=== PATIENT | male | born 1960 | race Caucasian/White ===

== ENCOUNTER 2017-07-31 07:10 | Outpatient (CLI) | payer BC ==
--- NOTE | 2017-07-31 09:38 | Ultrasound Report ---
ULTRASOUND ABDOMEN LIMITED INDICATION: Elevated liver enzymes. COMPARISON: None similar at this institution. FINDINGS: Right upper quadrant sonography demonstrates diffusely echogenic liver with grossly preserved contours. No definite focal suspicious lesion or biliary dilatation. No gallstones or pericholecystic fluid. Slight gallbladder sludge. Gallbladder wall thickness is 2.7 mm. Common bile duct is 3.4 mm. Imaged pancreas, nonaneurysmal abdominal aorta and IVC appear within normal limits. Nonhydronephrotic, 12.2 x 5.2 x 5.3 cm right kidney with cortical thickness of 1.6 cm. CONCLUSION: Fatty liver and possible slight gallbladder sludge without acute sonographic abnormality, as described. Thank you for the opportunity to participate in this patient's care.
== END 2017-07-31 07:11 | disposition home or self-care (01) ==
LOC: US 07:10
PROVIDERS: ATTEND Internal Medicine
DX: K76.0 Fatty (change of) liver, not elsewhere classified (principal); R74.8 Abnormal levels of other serum enzymes
CPT/HCPCS: 76705

== ENCOUNTER 2021-02-12 09:01 | Emergency (ER) | payer SELFPAY ==
[2021-02-12 10:42] VITALS: BP 164/86
--- NOTE | 2021-02-12 10:44 | Event Note ---
ED Screening Note Date of service: 02/12/21 Time: 10:41 ED Screening Note: 60-year-old male patient with history of hypertension presents emergency department complaints of progressively worsening nontraumatic headache. Patient states he first began experiencing headaches approximately 1 year ago. The headache began to worsen over the course of the last 3 weeks. He endorses associated blurred vision and paresthesias in both upper and lower extremities. He has been taking Tylenol for pain. He is not anticoagulated. No seizure or syncope. General: Awake, appropriately interactive, no acute distress. Neck: Supple. Full range of motion intact. Cardiovascular: Normal peripheral perfusion. Pulmonary: No respiratory distress. Patient is speaking normally without use of accessory muscles. Skin: No apparent rashes or lesions. Neurological: No facial asymmetry. Speech is clear. Follows commands. Patient is alert and oriented. Strength and sensation intact throughout. Occipital headache improved with flexion of the neck. Musculoskeletal: Moves all four extremities spontaneously with normal range of motion. Psych: Cooperative. Appropriate mood and affect. CT head indication: worsening headache + visual disturbance + paresthesias + hx of HTN + age >40; cannot be clinically ruled out using [place] SAH rule I have greeted and performed a focused rapid initial assessment of this patient. A comprehensive ED assessment and evaluation of the patient, analysis of all test results, and completion of the medical decision-making process will be conducted by additional ED providers. This initial assessment/diagnostic orders/clinical plan/treatment(s) is/are subject to change based on patients health status, clinical progression and re-assessment. Further treatment and workup at subsequent clinical provider's discretion. Patient/guardian urged not to elope from the ED as their condition may be serious if not clinically assessed and managed.
--- NOTE | 2021-02-12 10:47 | Emergency Department Report ---
ED General Adult HPI - General Chief complaint: Headache Stated complaint: HEAD PAIN Time Seen by Provider: 02/12/21 10:45 Source: patient Mode of arrival: Ambulatory Limitations: No Limitations - History of Present Illness Initial comments: 60-year-old male patient with history of hypertension presents emergency department complaints of progressively worsening nontraumatic headache. Patient states he first began experiencing headaches approximately 1 year ago. The headache began to worsen over the course of the last 3 weeks. He endorses associated blurred vision and paresthesias in both upper and lower extremities. He has been taking Tylenol for pain. He is not anticoagulated. Denies neck stiffness, seizure, syncope, fever, nausea, vomiting. Denies other complaints at this time - Related Data Previous Rx's Medication Instructions Recorded Last Taken Type Naproxen 500 mg PO BID #20 tablet 02/12/21 Unknown Rx Allergies Allergy/AdvReac Type Severity Reaction Status Date / Time No Known Allergies Allergy Unverified 07/31/17 07:10 ED Review of Systems ROS: Stated complaint: HEAD PAIN Other details as noted in HPI Other: GENERAL: Negative for fever, chills, weight change, anorexia, fatigue. EYES: Positive for blurred vision. ENT: Negative for ear pain, difficulty hearing, sore throat, nasal congestion, epistaxis. CARDIOVASCULAR: Negative for chest pain, palpitations, lower extremity swelling. PULMONARY: Negative for cough, dyspnea, wheezing, orthopnea, cyanosis. GASTROINTESTINAL: Negative for abdominal pain, nausea, vomiting, diarrhea, constipation. MUSCULOSKELETAL: Negative for joint pain, joint swelling, myalgias, back pain, neck pain. NEUROLOGICAL: Positive for headache and paresthesias. INTEGUMENTARY: Negative for erythema, rash, diaphoresis, laceration, ecchymosis. HEMATOLOGICAL: Negative for hemoptysis, hematemesis, hematochezia, hematuria. PSYCHIATRIC: Negative for hallucinations, suicidal ideation, homicidal ideation, anxiety, depression. ED Past Medical Hx - Past Medical History Hx Hypertension: Yes - Surgical History Past Surgical History?: No - Social History Smoking Status: Current Some Day Smoker Substance Use Type: Alcohol - Medications Home Medications: Home Medications Medication Instructions Recorded Confirmed Last Taken Type Naproxen 500 mg PO BID #20 tablet 02/12/21 Unknown Rx ED Physical Exam - General Limitations: No Limitations - Other Other exam information: General: Awake and alert. No acute distress. Head: Atraumatic, normocephalic. Eyes: EOMI. Pupils are equal and round, reactive to light, no nystagmus. Normal sclera and conjunctiva. ENT: Oral mucosa is moist. Normal pharyngeal exam. Neck: Supple. No lymphadenopathy. Pulmonary: No respiratory distress. Clear to auscultation bilaterally. Cardiac: Regular rate and rhythm. Pulses are palpable and equal bilaterally. No lower extremity cyanosis or edema. Skin: Warm and dry. No rashes. Abdomen: Soft, non-tender, non-protuberant. No guarding, rigidity, or rebound. Bowel sounds are normal. No organomegaly or masses noted. Back: Normal alignment. No CVA tenderness. Extremities: Symmetrical. Full range of motion intact. Neurological: Alert and oriented, appropriately interactive, no focal deficits. No facial asymmetry. Speech is clear. Follows commands. Patient is alert and oriented. Strength and sensation intact throughout. Occipital headache improved with flexion of the neck. Psych: Cooperative. Appropriate mood and affect. Speech is evenly metered. Thoughts are logically construed. ED Course Vital Signs 02/12/21 09:06 Temperature 98.4 F Pulse Rate 64 Respiratory 16 Rate Blood Pressure 164/86 O2 Sat by Pulse 94 Oximetry ED Medical Decision Making - Radiology Data [facility] [address] [place] [address] Cat Scan Report Signed Patient: INNA FOUNTAIN MR#: [id number] : 1960 Acct:[id number] Age/Sex: 60 / M ADM Date: 02/12/21 Loc: ED Attending Dr: Ordering Physician: ABHIJIT MCGRATH Date of Service: 02/12/21 Procedure(s): CT head/brain wo con Accession Number(s): [id number] cc: ABHIJIT MCGRATH CT HEAD WITHOUT CONTRAST INDICATION / CLINICAL INFORMATION: LE, visual disturbance, paresthesias. TECHNIQUE: All CT scans at this location are performed using CT dose reduction for ALARA by means of automated exposure control. COMPARISON: None available. FINDINGS: HEMORRHAGE: No evidence of intracranial hemorrhage or extra-axial fluid collection. EXTRA-AXIAL SPACES: Cortical sulci, sylvian fissures and basilar cisterns have an unremarkable appearance. VENTRICULAR SYSTEM: The third and lateral ventricles are of normal size and configuration. CEREBRAL PARENCHYMA: No areas of abnormal brain parenchymal attenuation are identified. There is no indication of recent infarction. MIDLINE SHIFT OR HERNIATION: There is no mass effect. CEREBELLUM / BRAINSTEM: Brainstem and cerebellum have an unremarkable appearance. MIDLINE STRUCTURES:No abnormalities of the pituitary gland or pineal region are identified. INTRACRANIAL VESSELS:No abnormalities are identified on this noncontrast head CT. ORBITS: visualized portions of the orbits have an unremarkable appearance. SOFT TISSUES of HEAD: No significant abnormality. CALVARIUM: Evaluation of bone windows reveals no abnormalities. PARANASAL SINUSES / MASTOID AIR CELLS: Visualized portions of the paranasal sinuses are free from inflammatory mucosal disease. Mastoid air cells are normally pneumatized. ADDITIONAL FINDINGS: None. IMPRESSION: 1. No acute intracranial abnormality. Signer Name: Yony Qureshi MD Signed: 02/12/2021 12:01 PM Workstation Name: [id number] Transcribed By: Dictated By: Yony Qureshi MD Electronically Authenticated By: Yony Qureshi MD Signed Date/Time: 02/12/21 1201 DD/ 1154 TD/TT: - Medical Decision Making Differential diagnosis including but not limited to: subarachnoid hemorrhage, space-occupying lesion, hydrocephalus, intracranial hemorrhage, occipital neuralgia, migraine headache, tension headache, cluster headache Patient presents emergency department with complaints of worsening headache with associated visual disturbance and paresthesias. He is over the age of 40 and has a history of hypertension. Therefore, he cannot be clinically ruled out using the [place] subarachnoid hemorrhage rule. CT of the head obtained for further evaluation. On reevaluation, patient remains stable. Repeat neurovascular exam remains nonfocal. CT of the head without acute process. It was explained to the patient that CT scanner is not 100% sensitive for detecting subarachnoid hemorrhage, and the only way to definitively rule out this diagnosis would be to perform a lumbar puncture. Shared decision making has been implemented and patient has been presented with the options of lumbar puncture vs. conservative management. The risks and benefits of each option have been discussed. The patients ability to make an informed decision has been assessed and it has been determined that the patient has the capacity to comprehend the information about their current medical condition and appreciate the impact of the disease and the consequence of various options for treatment. The patient possesses the ability to evaluate all treatment options, compare the risks and benefits of each option, communicate this choice in a consistent manner over time, and is able to make choices that are not irrational. The patient has had an opportunity to express his preferences and goals of care. Patient was given the opportunity to ask questions, all of which were satisfactorily answered. The patient has politely refused lumbar puncture at this time, but he is agreeable to close outpatient follow-up with neurology and agrees to return to the emergency department immediately for new or worsening symptoms. The patient is alert, talkative, interactive and in no distress. The patient is neurovascularly intact and ambulatory in emergency department. History, exam, diagnostic testing, and current condition do not suggest worrisome pathology to warrant further testing, emergent intervention, admission, or specialist evaluation at this point. Patient agrees to reconsider lumbar puncture if symptoms worsen or recur. Discussed findings, presumptive diagnosis, need for fo llow-up and specific signs/symptoms that should prompt immediate return to the emergency department. Instructions were explained in detail to the patient in addition to giving written discharge information. Patient expressed understanding and was given the opportunity to ask questions, all of which were satisfactorily answered prior to discharge home. Critical care attestation.: If time is entered above; I have spent that time in minutes in the direct care of this critically ill patient, excluding procedure time. ED Disposition Clinical Impression: Cervicogenic headache Disposition: DC-01 TO HOME OR SELFCARE Is pt being admited?: No Does the pt Need Aspirin: No Condition: Stable Instructions: Cervicogenic Headache Additional Instructions: Take Tylenol every 4 hours needed for pain. Take Naprosyn twice daily with food as needed for pain. Follow-up with your primary care provider and/or your neurologist within 1 week. Call today to schedule an appointment. Return to the emergency department immediately for new or worsening symptoms. Specifically, return to the emergency department immediately for worsening pain, mental status changes, numbness, seizure, loss of consciousness, worsening vision, neck stiffness, or any other concerns. Prescriptions: Naproxen 500 mg PO BID #20 tablet Referrals: BAILEY BO MD [Staff Physician] - 3-5 Days Time of Disposition: 12:20
--- NOTE | 2021-02-12 12:06 | Cat Scan Report ---
CT HEAD WITHOUT CONTRAST INDICATION / CLINICAL INFORMATION: LE, visual disturbance, paresthesias. TECHNIQUE: All CT scans at this location are performed using CT dose reduction for ALARA by means of automated e xposure control. COMPARISON: None available. FINDINGS: HEMORRHAGE: No evidence of intracranial hemorrhage or extra-axial fluid collection. EXTRA-AXIAL SPACES: Cortical sulci, sylvian fissures and basilar cisterns have an unremarkable appear ance. VENTRICULAR SYSTEM: The third and lateral ventricles are of normal size and configuration. CEREBRAL PARENCHYMA: No areas of abnormal brain parenchymal attenuation are identified. There is no i ndication of recent infarction. MIDLINE SHIFT OR HERNIATION: There is no mass effect. CEREBELLUM / BRAINSTEM: Brainstem and cerebellum have an unremarkable appearance. MIDLINE STRUCTURES:No abnormalities of the pituitary gland or pineal region are identified. INTRACRANIAL VESSELS:No abnormalities are identified on this noncontrast head CT. ORBITS: visualized portions of the orbits have an unremarkable appearance. SOFT TISSUES of HEAD: No significant abnormality. CALVARIUM: Evaluation of bone windows reveals no abnormalities. PARANASAL SINUSES / MASTOID AIR CELLS: Visualized portions of the paranasal sinuses are free from inf lammatory mucosal disease. Mastoid air cells are normally pneumatized. ADDITIONAL FINDINGS: None. IMPRESSION: 1. No acute intracranial abnormality. Signer Name: Yony Qureshi MD Signed: 02/12/2021 12:01 PM Workstation Name: [id number]
== END 2021-02-12 13:35 | disposition home or self-care (01) ==
LOC: ED 09:01
DX: G44.89 Other headache syndrome (principal); I10 Essential (primary) hypertension; Z79.899 Other long term (current) drug therapy; F17.200 Nicotine dependence, unspecified, uncomplicated
CPT/HCPCS: 70450; 99283